=== PATIENT | female | born 1995 | race Caucasian/White ===

== ENCOUNTER 2019-05-06 13:53 | Emergency (ER) | payer MEDICAID ==
[2019-05-06 14:08] VITALS: BP 152/84
[2019-05-06] MEDS ORDERED: IBUPROFEN 800 MG TABLET PO ONE (14:24)
--- NOTE | 2019-05-06 14:24 | ER Document Report ---
HPI - HPI Time Seen by Provider: 05/06/19 14:09 Pain Level: 3 Notes: 23-year-old female to the emergency department with upper respiratory symptoms for the past 3 days. She states that she started with a sore throat, cough, shortness of breath, tussive chest pain, body aches about 2-1/2 days ago. She is not sure that she has had a fever. She has been taking cough medicine [id number]. She also has been using her albuterol inhaler. She does have a history of asthma. She states that she has not been frankly wheezing. She denies any recent history of hospitalizations or iintubation her asthma. - CONSTITUTIONAL Constitutional: DENIES: Fever, Chills - EENT EENT: REPORTS: Sore Throat, Nasal Drainage-Clear, Congestion - NEURO Neurology: REPORTS: Headache - CARDIOVASCULAR Cardiovascular: REPORTS: Chest pain - RESPIRATORY Respiratory: REPORTS: Coughing - GASTROINTESTINAL Gastrointestinal: DENIES: Abdominal Pain, Nausea, Patient vomiting, Diarrhea, Constipation - MUSCULOSKELETAL Musculoskeletal: REPORTS: Extremity pain - body aches - DERM Skin Color: Normal Skin Problems: None Past Medical History - General Information source: Patient - Social History Smoking Status: Current Every Day Smoker Frequency of alcohol use: None Drug Abuse: None Family History: Reviewed & Not Pertinent Patient has suicidal ideation: No Patient has homicidal ideation: No Pulmonary Medical History: Reports: Hx Asthma Vertical Provider Document - CONSTITUTIONAL Exam Limitations: No Limitations General Appearance: WD/WN, No Apparent Distress - INFECTION CONTROL TRAVEL OUTSIDE OF THE [place] IN LAST 30 DAYS: No - HEENT HEENT: Atraumatic, Pharyngeal Erythema. negative: PERRLA, Pharyngeal Exudate Notes: there is posterior oropharyngal beefy erythema without ulcerations or exudates. uvula is midline, no brittany's angina, airway is grossly patent. - NECK Neck: Normal Inspection, Supple. negative: Thyroid Normal, Lymphadenopathy- Left, Lymphadenopathy-Right - RESPIRATORY Respiratory: Breath Sounds Normal. negative: Rales, Rhonchi, Wheezing - CARDIOVASCULAR Cardiovascular: Regular Rate, Regular Rhythm - GI/ABDOMEN Gastrointestinal: Abdomen Soft, Abdomen Non-Tender - MUSCULOSKELETAL/EXTREMETIES Musculoskeletal/Extremeties: MAEW, FROM - NEURO Level of Consciousness: Awake, Alert, Appropriate Motor/Sensory: No Motor Deficit, No Sensory Deficit, No Pronator Drift - DERM Integumentary: Warm, Dry, No Rash Course - Re-evaluation Re-evalutation: 05/06/19 Impression: Flulike syndrome, cough, body aches. Negative for pneumonia and negative for influenza A/B as well as strep. Will send home with cough medicine. Patient has plenty of albuterol inhaler earlier. Have encouraged her to push fluids and to rest. She is to return if she worsens. She agrees with the plan. - Vital Signs Vital signs: Temp Pulse Resp BP Pulse Ox 98.4 F 96 18 152/84 H 99 05/06/19 14:07 05/06/19 14:07 05/06/19 14:07 05/06/19 14:07 05/06/19 14:07 Discharge - Discharge Clinical Impression: Flu-like symptoms, Cough, Sore throat, Body aches Condition: Stable Disposition: HOME, SELF-CARE Instructions: Influenza (OM) Additional Instructions: Push fluids. Alternate between Tylenol Motrin for fever and pain control. Use your albuterol inhaler. Use cough medicine. Prescriptions: Ibuprofen [Motrin 800 mg Tablet] 800 mg PO Q8H PRN #30 tab PRN Reason: Promethazine/Dextromethorphan [Promethazine-Dm Syrup] 5 ml PO Q6H #120 ml Referrals: [facility] [Provider Group] - Follow up in 1 week
--- NOTE | 2019-05-06 15:22 | RADIOLOGY REPORT (SQ) ---
EXAM DESCRIPTION: CHEST 2 VIEWS COMPLETED DATE/TIME: 05/06/2019 1:56 pm REASON FOR STUDY: cough, tussive chest pain COMPARISON: None. EXAM PARAMETERS: NUMBER OF VIEWS: two views TECHNIQUE: Digital Frontal and Lateral radiographic views of the chest acquired. RADIATION DOSE: NA LIMITATIONS: none FINDINGS: LUNGS AND PLEURA: No opacities, masses or pneumothorax. No pleural effusion. MEDIASTINUM AND HILAR STRUCTURES: No masses or contour abnormalities. HEART AND VASCULAR STRUCTURES: Heart normal size. No evidence for failure. BONES: No acute findings. HARDWARE: None in the chest. OTHER: No other significant finding. IMPRESSION: NO ACUTE RADIOGRAPHIC FINDING IN THE CHEST. TECHNICAL DOCUMENTATION: JOB ID: [id number] 2010 [employer]- All Rights Reserved Reading location - IP/workstation name: [email or web address]
[2019-05-06 15:36] LABS: A TYPE INFLUENZA AG NEGATIVE (NEGATIVE); B INFLUENZA AG NEGATIVE (NEGATIVE)
== END 2019-05-06 16:26 | disposition home or self-care (01) ==
LOC: ER 13:53
DX: J11.1 Influenza due to unidentified influenza virus with other respiratory manifestations (principal); R05 Cough; M79.10 Myalgia, unspecified site; R06.02 Shortness of breath; R07.9 Chest pain, unspecified; F17.200 Nicotine dependence, unspecified, uncomplicated; J45.909 Unspecified asthma, uncomplicated
CPT/HCPCS: 99283; 87070; 87880; 87804; 71046; J3490

== ENCOUNTER 2019-08-05 22:42 | Emergency (ER) | payer MEDICAID ==
[2019-08-05 22:48] VITALS: BP 154/85
--- NOTE | 2019-08-05 23:48 | ER Document Report ---
ED Skin Rash/Insect Bite/Abscs - General Chief Complaint: Skin Problem Stated Complaint: FINGER WOUND Time Seen by Provider: 08/05/19 23:43 Notes: CHIEF COMPLAINT: Wound on left thumb, shortness of breath HPI: 23-year-old female with a raised mildly uncomfortable area on the volar aspect of the left thumb over the last several weeks. States it has been bleeding intermittently over the last 2 weeks but she has been picking at the area. She did not know what it was so decided to come to the ER [facility] for evaluation. Has not had a fever. Denies numbness or tingling in the fingertip. ROS: See HPI - all other systems were reviewed and are otherwise negative Constitutional: no fever Integumentary: no rash Allergy: no hives Musculoskeletal: + extremity pain or swelling Neurological: no numbness/tingling, no weakness MEDICATIONS: I agree with the patient medications as charted by the RN. ALLERGIES: I agree with the allergies as charted by the RN. PAST MEDICAL HISTORY/PAST SURGICAL HISTORY: Reviewed and agree as charted by RN. SOCIAL HISTORY: Reviewed and agree as charted by RN. FAMILY HISTORY: No significant familial comorbid conditions directly related to patient complaint EXAM: Reviewed vital signs as charted by RN. CONSTITUTIONAL: Alert and oriented and responds appropriately to questions. Well-appearing; well-nourished HEAD: Normocephalic; atraumatic EYES: Conjunctivae clear, sclerae non-icteric ENT: normal nose; no rhinorrhea; moist mucous membranes NECK: Supple without meningismus CARD: symmetric distal pulses RESP: Normal chest excursion without splinting or tachypnea. Lung sounds are clear to auscultation ABD/GI: non-distended BACK: The back appears normal EXT: Normal ROM in all joints; no cyanosis, no effusions, no edema SKIN: Normal color for age and race; warm; dry; good turgor; there is a small 0.5 cm raised circular lesion on the proximal phalange of the left thumb on the volar aspect. Small blood blister at the top of this lesion, minimally tender on palpation NEURO: Moves all extremities equally; Motor and sensory function intact PSYCH: The patient's mood and manner are appropriate. Grooming and personal hygiene are appropriate. MDM: 23-year-old female with what is likely a wart on the left thumb. Will recommend [id number] treatment or follow-up with PCP or dermatology for removal. Incidentally also complaining of some shortness of breath with an asthma history. Will obtain chest x-ray TRAVEL OUTSIDE OF THE [place] IN LAST 30 DAYS: No - Related Data Allergies/Adverse Reactions: No Known Allergies Allergy (Verified 05/06/19 14:11) Past Medical History - Social History Smoking Status: Unknown if Ever Smoked Family History: Reviewed & Not Pertinent Pulmonary Medical History: Reports: Hx Asthma Physical Exam - Vital signs Vitals: Temp Pulse Resp BP Pulse Ox 98.1 F 97 14 154/85 H 97 08/05/19 22:46 08/05/19 22:46 08/05/19 22:46 08/05/19 22:46 08/05/19 22:46 Course - Vital Signs Vital signs: Temp Pulse Resp BP Pulse Ox 98.1 F 97 14 154/85 H 97 08/05/19 22:46 08/05/19 22:46 08/05/19 22:46 08/05/19 22:46 08/05/19 22:46 Discharge - Discharge Clinical Impression: Wart Qualifiers: Viral wart type: unspecified viral wart Qualified Code(s): B07.9 - Viral wart, unspecified Condition: Stable Disposition: HOME, SELF-CARE Additional Instructions: Follow-up with a primary care provider for further evaluation of the wart on the thumb, you may attempt [id number] medications for removal as well.
== END 2019-08-06 00:26 | disposition home or self-care (01) ==
LOC: ER 22:42
DX: B07.9 Viral wart, unspecified (principal); R06.02 Shortness of breath; M79.645 Pain in left finger(s)
CPT/HCPCS: 99283

== ENCOUNTER 2019-08-12 16:28 | Emergency (ER) | payer MEDICAID ==
[2019-08-12 17:51] VITALS: BP 140/84
[2019-08-12] MEDS ORDERED: VALACYCLOVIR HCL 500 MG TABLET PO ONE (17:52)
--- NOTE | 2019-08-12 17:55 | ER Document Report ---
ED Medical Screen (RME) - General Chief Complaint: Mouth Problem Stated Complaint: BUMPS ON LIPS Time Seen by Provider: 08/12/19 17:43 Primary Care Provider: [facility] [Provider Group] - Follow up as needed [facility] [Provider Group] - Follow up as needed [facility] [Provider Group] - Follow up as needed Mode of Arrival: Ambulatory Information source: Patient Notes: 23-year-old female presented to ED with blisters to her lips. She states they have been there slowly progressing over the last couple days. She states she was seen a week ago when she did not have any blisters at that time. She states she does get very anxious and stressed over everything. She states she does not go to doctors at all. She states she was seen a week ago here for wart on her hand. Patient is alert oriented respirations regular nonlabored speaking in full sentences. TRAVEL OUTSIDE OF THE [place] IN LAST 30 DAYS: No - HPI Onset: Other - Blisters to her lips Onset/Duration: Gradual Quality of pain: Burning Severity: Moderate Pain Level: 2 Exacerbated by: Denies Relieved by: Denies Similar symptoms previously: No Recently seen / treated by doctor: No - Related Data Smoking: Cigarettes - Per day Frequency of alcohol use: None Drug Abuse: None Allergies/Adverse Reactions: No Known Allergies Allergy (Verified 05/06/19 14:11) Past Medical History - General Information source: Patient - Social History Cigarette use (# per day): Yes - Pack per day Chew tobacco use (# tins/day): No Frequency of alcohol use: None Drug Abuse: None Occupation: [employer] Lives with: Family Family history: Reviewed & Not Pertinent - Past Medical History Cardiac Medical History: Reports: None Pulmonary Medical History: Reports: Hx Asthma EENT Medical History: Reports: None Neurological Medical History: Reports: None Endocrine Medical History: Reports: None Renal/ Medical History: Reports: None GI Medical History: Reports: None Musculoskeltal Medical History: Reports None Skin Medical History: Reports None Psychiatric Medical History: Reports: None Traumatic Medical History: Reports: None Infectious Medical History: Reports: None Surgical Hx: Negative Past Surgical History: Reports: None - Immunizations Immunizations up to date: No Hx Diphtheria, Pertussis, Tetanus Vaccination: No Review of Systems - Review of Systems Constitutional: No symptoms reported EENT: No symptoms reported Cardiovascular: No symptoms reported Respiratory: No symptoms reported Gastrointestinal: No symptoms reported Genitourinary: No symptoms reported Female Genitourinary: No symptoms reported Musculoskeletal: No symptoms reported Skin: No symptoms reported Hematologic/Lymphatic: No symptoms reported Neurological/Psychological: No symptoms reported Physical Exam - Vital signs Vitals: Temp 97.8 F 08/12/19 16:29 Interpretation: Normal - General General appearance: Appears well, Alert - HEENT Head: Normocephalic, Atraumatic Eyes: Normal Pupils: PERRL Mouth/Lips: Lesions Pharynx: Normal Neck: Normal - Respiratory Respiratory status: No respiratory distress Chest status: Nontender Breath sounds: Normal Chest palpation: Normal - Cardiovascular Rhythm: Regular Heart sounds: Normal auscultation Murmur: No - Abdominal Inspection: Normal Distension: No distension Bowel sounds: Normal Tenderness: Nontender Organomegaly: No organomegaly - Back Back: Normal, Nontender - Extremities General upper extremity: Normal inspection, Nontender, Normal color, Normal ROM, Normal temperature General lower extremity: Normal inspection, Nontender, Normal color, Normal ROM, Normal temperature, Normal weight bearing. No: Chapis's sign - Neurological Neuro grossly intact: Yes Cognition: Normal Orientation: AAOx4 [place] Coma Scale Eye Opening: Spontaneous Gladys Coma Scale Verbal: Oriented Gladys Coma Scale Motor: Obeys Commands Gladys Coma Scale Total: 15 Speech: Normal Motor strength normal: LUE, RUE, LLE, RLE Sensory: Normal - Psychological Associated symptoms: Normal affect, Normal mood - Skin Skin Temperature: Warm Skin Moisture: Dry Skin Color: Normal Course - Vital Signs Vital signs: Temp Pulse Resp BP Pulse Ox 97.8 F 93 18 140/84 H 98 08/12/19 17:44 08/12/19 17:44 08/12/19 17:44 08/12/19 17:44 08/12/19 17:44 Doctor's Discharge - Discharge Clinical Impression: Herpes simplex Condition: Stable Disposition: HOME, SELF-CARE Additional Instructions: Herpes Simplex You have been diagnosed as having a herpes virus infection. The herpes ("cold sore") virus usually infects the areas around the mouth. However, it can cause infection on any skin surface. It's particularly dangerous if infection occurs in the eye. On the initial infection, herpes blisters erupt over a large area. There is usually fever and aching. This infection takes about 14 days to resolve. After the initial infection, herpes sores can erupt on small areas (usually the lips), then heal in about a week. Sunburn, fever, local irritation, or even emotions can provoke a "fever blister" attack of herpes. Initial herpes infections can be treated with medication if severe. Subsequent attacks are usually given only local care to reduce symptoms; however, the physician may decide to prescribe anti-viral medication if your case warrants it. Call the doctor if you are worsening in any way. Valtrex Valtrex is used to treat infections caused by the Herpes family of viruses. It's available as capsules or ointment. Valtrex is most effective if started at the first sign of the viral outbreak. It can decrease the severity and duration of symptoms. However, it doesn't eliminate the virus from the body completely. If you're prone to repeated outbreaks of herpes, you'll continue to have attacks. Apply ointment with a disposable glove or finger-cot to avoid spreading the virus with your finger. If pills have been prescribed, take them for the full recommended course. Occasionally, mild nausea or headaches may occur. Call the doctor if you develop wheezing, itching, rash, shortness of breath, or lightheadedness. FOLLOW-UP CARE: If you have been referred to a physician for follow-up care, call the [facility] office for an appointment as you were instructed or within the next two days. If you experience worsening or a significant change in your symptoms, notify the physician immediately or return to the Emergency Department at any time for re-evaluation. Prescriptions: Valacyclovir HCl [Valtrex] 1,000 mg PO ONCE PRN #2 tablet PRN Reason: Forms: Elevated Blood Pressure, Smoking Cessation Education Referrals: [facility] [Provider Group] - Follow up as needed [facility] [Provider Group] - Follow up as needed [facility] [Provider Group] - Follow up as needed
== END 2019-08-12 18:04 | disposition home or self-care (01) ==
LOC: ER 16:28
DX: B00.1 Herpesviral vesicular dermatitis (principal); F17.210 Nicotine dependence, cigarettes, uncomplicated
CPT/HCPCS: 99282; J3490

== ENCOUNTER 2019-09-16 17:23 | Emergency (ER) | payer MEDICAID ==
[2019-09-16 17:33] VITALS: BP 169/90
--- NOTE | 2019-09-16 18:34 | ER Document Report ---
ED Medical Screen (RME) - General Chief Complaint: Vaginal Bleeding Stated Complaint: ABDOMINAL PAIN,VAGINAL BLEEDING Time Seen by Provider: 09/16/19 18:29 Mode of Arrival: Ambulatory Information source: Patient Notes: HPI; 23-year-old female presents to the emergency room complaining of persistent vaginal bleeding for the past 12 days. Some mild abdominal cramping. No nausea, no vomiting, no urinary symptoms. PE: Alert and oriented x3. Mild distress noted. Lungs: Clear to auscultation without rales, rhonchi, wheezes. Heart: Tachycardic without murmurs, rubs, gallops. I have greeted and performed a rapid initial assessment of this patient. A comprehensive ED assessment and evaluation of the patient, analysis of test results and completion of the medical decision making process will be conducted by additional ED providers. I have specifically instructed the patient or family members with the patient to immediately return to any nursing staff should anything change in the patient's condition or with their chief complaint. TRAVEL OUTSIDE OF THE [place] IN LAST 30 DAYS: No - Related Data Allergies/Adverse Reactions: No Known Allergies Allergy (Verified 09/16/19 18:29) Past Medical History - Social History Chew tobacco use (# tins/day): No Frequency of alcohol use: None Drug Abuse: None Family history: Reviewed & Not Pertinent Pulmonary Medical History: Reports: Hx Asthma - Immunizations Immunizations up to date: No Hx Diphtheria, Pertussis, Tetanus Vaccination: No Physical Exam - Vital signs Vitals: Temp Pulse Resp BP Pulse Ox 97.8 F 106 H 20 169/90 H 97 09/16/19 17:31 09/16/19 17:31 09/16/19 17:31 09/16/19 17:31 09/16/19 17:31 Course - Vital Signs Vital signs: Temp Pulse Resp BP Pulse Ox 97.8 F 106 H 20 169/90 H 97 09/16/19 18:29 09/16/19 17:31 09/16/19 17:31 09/16/19 17:31 09/16/19 17:31
[2019-09-16 19:41] LABS: APPEARANCE,URINE CLEAR; BILIRUBIN,URINE NEGATIVE (NEGATIVE); COLOR,URINE YELLOW; GLUCOSE, URINE NEGATIVE (NEGATIVE); KETONES,URINE NEGATIVE (NEGATIVE); LEUKOCYTE ESTERASE,URINE NEGATIVE (NEGATIVE); NITRITE,URINE NEGATIVE (NEGATIVE); PROTEIN,URINE 30 mg/dL (NEGATIVE)
[2019-09-16 19:44] LABS: ABSOLUTE EOSINOPHILS # (AUTO) 0.6 10^3/uL (0.0-0.6); ABSOLUTE LYMPHOCYTES (AUTO) 5.5 10^3/uL (0.5-4.7); ABSOLUTE MONOCYTES (AUTO) 1.1 10^3/uL (0.1-1.4); BASOPHILS % (AUTO) 0.3 % (0-2); EOSINOPHILS % (AUTO) 3.6 % (0-6); HEMATOCRIT 44.3 % (36.0-47.0); HEMOGLOBIN 14.9 g/dL (12.0-15.5); LYMPHOCYTES % (AUTO) 36.3 % (13-45); MEAN CORPUSCULAR HEMOGLOBIN 28.9 pg (27.0-33.4); MEAN CORPUSCULAR HGB CONC 33.6 g/dL (32.0-36.0); MEAN CORPUSCULAR VOLUME 86 fl (80-97); MONOCYTES % (AUTO) 7.3 % (3-13); PLATELET COUNT 364 10^3/uL (150-450); RED BLOOD COUNT 5.15 10^6/uL (3.72-5.28); RED CELL DISTRIBUTION WIDTH 13.7 % (11.5-14.0); SEGMENTED NEUTROPHILS % (AUTO) 52.5 % (42-78); TOTAL CELLS COUNTED % (AUTO) 100 %; WHITE BLOOD COUNT 15.2 10^3/uL (4.0-10.5)
--- NOTE | 2019-09-16 19:52 | RADIOLOGY REPORT (SQ) ---
EXAM DESCRIPTION: U/S NON OB PEL W/DOPPLER IMAGES COMPLETED DATE/TIME: 09/16/2019 7:25 pm REASON FOR STUDY: vaginal bleeding COMPARISON: None. TECHNIQUE: Dynamic and static grayscale images acquired of the pelvis via transabdominal approach an d recorded on PACS. Additional selected color Doppler and spectral images recorded. LIMITATIONS: None. FINDINGS: UTERUS: Contour normal. No mass. ENDOMETRIAL STRIPE: No focal or generalized thickening. No masses. CERVIX: No nabothian cysts. RIGHT OVARY AND DOPPLER: Normal size. No worrisome masses. Normal arterial vascular flow without evid ence for torsion. LEFT OVARY AND DOPPLER: Normal size. No worrisome masses. Normal arterial vascular flow without evide nce for torsion. FREE FLUID: None noted. OTHER: No other significant finding. MEASUREMENTS: UTERUS: 8.5 cm ENDOMETRIAL STRIPE: 12 mm RIGHT OVARY: 4 cm LEFT OVARY: 3.4 cm IMPRESSION: He was TECHNICAL DOCUMENTATION: JOB ID: [id number] 2010 [employer]- All Rights Reserved Rev-08/01 Reading location - IP/workstation name: [email or web address]
[2019-09-16 19:59] LABS: ALBUMIN 4.5 g/dL (3.5-5.0); ALKALINE PHOSPHATASE 58 U/L (38-126); ANION GAP 9 (5-19); ASPARTATE AMINO TRANSFERASE 23 U/L (14-36); BILIRUBIN,TOTAL 0.3 mg/dL (0.2-1.3); BLOOD UREA NITROGEN 11 mg/dL (7-20); CARBON DIOXIDE 30 mmol/L (22-30); CHLORIDE 99 mmol/L (98-107); GLUCOSE 79 mg/dL (75-110); TOTAL PROTEIN 7.8 g/dL (6.3-8.2)
== END 2019-09-17 00:33 | disposition left against medical advice (07) ==
LOC: ER 17:23
DX: O20.9 Hemorrhage in early pregnancy, unspecified (principal); Z3A.00 Weeks of gestation of pregnancy not specified
CPT/HCPCS: 36415; 76856; 80053; 81001; 84703; 85025; 93976; 99281